=== PATIENT | male | born 1950 | race Caucasian/White ===

== ENCOUNTER 2020-10-22 23:41 | Emergency (ER) | payer MEDICARE ==
[~2020-10-22] VITALS: Ht 172.7 cm; Wt 95.2 kg
[2020-10-23] MEDS ORDERED: PANT40 PO (00:11)
[2020-10-23] MEDS ORDERED: ATEN25 PO (00:11)
[2020-10-23] MEDS ORDERED: OMEGA-3 + D SO1 EACH PO (00:12)
[2020-10-23] MEDS ORDERED: LOSA25 PO (00:12)
[2020-10-23] MEDS ORDERED: METF500 PO (00:13)
[2020-10-23] MEDS ORDERED: ASPIR 8181 M1 PO (00:13)
[2020-10-23] MEDS ORDERED: SIME40L PO (00:13)
[2020-10-23] MEDS ORDERED: MAGNESIUM OXID500 MG PO (00:14)
== END 2020-10-23 01:11 | disposition home or self-care (01) ==
LOC: ER 23:41
DX: I10 Essential (primary) hypertension (principal); R00.2 Palpitations; Z88.8 Allergy status to other drugs, medicaments and biological substances; Z79.899 Other long term (current) drug therapy
CPT/HCPCS: 93005; 93010; 99283-25

== ENCOUNTER 2021-06-21 09:12 | Day surgery (SDC) | payer MEDICARE ==
[~2021-06-21] VITALS: Ht 172.7 cm; Wt 94.2 kg
[~2021-06-21 09:12] MED LIST: ASPIR 8181 M1 PO; ATEN25 PO; LOSA25 PO; MAGNESIUM OXID500 MG PO; METF500 PO; OMEGA-3 + D SO1 EACH PO; PANT40 PO; SIME40L PO
== END 2021-06-21 10:40 | disposition home or self-care (01) ==
LOC: ORSCSDS 09:12
PROVIDERS: Surgery
PROC: 0DJD8ZZ Inspection of Lower Intestinal Tract, Via Natural or Artificial Opening Endoscopic (ICD-10-PCS; principal; 2021-06-21 10:30)
DX: Z12.11 Encounter for screening for malignant neoplasm of colon (principal); Z86.010 Personal history of colon polyps; I10 Essential (primary) hypertension; K21.9 Gastro-esophageal reflux disease without esophagitis; N18.30 Chronic kidney disease, stage 3 unspecified; E11.9 Type 2 diabetes mellitus without complications; E66.9 Obesity, unspecified; Z68.32 Body mass index [BMI] 32.0-32.9, adult; Z87.891 Personal history of nicotine dependence; Z79.82 Long term (current) use of aspirin; Z79.899 Other long term (current) drug therapy
CPT/HCPCS: 82947; J2704; J7120

== ENCOUNTER → 2024-08-18 | Outpatient (CLI) | payer MEDICARE ==
[2024-08-18 11:09] LABS: BASOPHILS ABSOLUTE AUTO 0.05 K/mm3 (0.00-0.23); BASOPHILS PERCENT AUTO 1 % (0-2); EOSINOPHILS ABSOLUTE AUTO 0.07 K/mm3 (0.00-0.68); EOSINOPHILS PERCENT AUTO 1 % (0-6); Hematocrit 38.3 % (37.0-53.0); Hemoglobin 12.9 g/dL (13.5-17.5); IMMATURE GRAN ABSOLUTE AUTO 0.02 K/mm3 (0.00-0.10); IMMATURE GRAN PERCENT AUTO 0 % (0-1); LYMPHOCYTES ABSOLUTE AUTO 1.25 K/mm3 (0.84-5.20); LYMPHOCYTES PERCENT AUTO 14 % (21-46); MONOCYTES ABSOLUTE AUTO 0.58 K/mm3 (0.16-1.47); MONOCYTES PERCENT AUTO 7 % (4-13); Mean Corpuscular HGB 30.6 pg (26.0-34.0); Mean Corpuscular HGB Conc 33.7 g/dL (31.5-36.5); Mean Corpuscular Volume 91 fL (80-100); Mean Platelet Volume 9.2 fL (9.1-12.4); NEUTROPHILS ABSOLUTE AUTO 6.87 K/mm3 (1.96-9.15); NEUTROPHILS PERCENT AUTO 78 % (41-73); Platelet Count 278 K/mm3 (150-400); RDW Coefficient Variation 11.8 % (11.7-14.2); RDW Standard Deviation 38.8 fL (35.1-46.3); Red Blood Cell Count 4.22 M/mm3 (4.30-5.90); White Blood Cell Count 8.84 K/mm3 (4.00-11.30)
[2024-08-18 11:20] LABS: Albumin, Blood 3.9 g/dL (3.4-5.0); Albumin/Globulin Ratio 1.1 (0.8-1.8); Bilirubin, Total 0.5 mg/dL (0.1-1.0); Bun/Creatinine Ratio 15.6 (12.0-20.0); Calcium, Blood 9.1 mg/dL (8.5-10.1); Creatinine, Blood 1.41 mg/dL (0.60-1.20); Globulin, Blood 3.6 g/dL (2.2-4.0); Potassium, Blood 4.2 mmol/L (3.5-5.5); Total Protein, Blood 7.5 g/dL (6.4-8.2)
== END | disposition home or self-care (01) ==
LOC: LAB SHORT 11:03 → LAB 11:03
PROVIDERS: Family Medicine
DX: R55 Syncope and collapse (principal); R42 Dizziness and giddiness
CPT/HCPCS: 80053; 84484; 85025